=== PATIENT | male | born 1965 | race Caucasian/White ===

== ENCOUNTER 2021-08-04 11:51 | Inpatient (IN) | payer BC ==
[2021-08-04] MEDS ORDERED: SODIUM CHLORIDE 0.9% 500 ML INFUS.BAG IV ONE (13:05)
[2021-08-04 13:26] LABS: BASO % 0.4 % (0-2.0); EOS % 1.5 % (0-4.5); HEMATOCRIT 38.5 % (35.4-49); HEMOGLOBIN 12.6 GM/dL (11.7-16.9); MCH 27.9 pg (25.7-33.7); MCHC 32.7 g/dl (32.0-35.9); MEAN CELL VOLUME 85.4 fl (80-96); MEAN PLT VOLUME 9.6 fl (7.5-11.1); MONO % 7.3 % (3.8-10.2); NEUT % 63.8 % (42.8-82.8); PLATELET COUNT 243 10^3/uL (134-434); RBC 4.51 M/mm3 (4.00-5.60); RDW 13.8 % (11.9-15.9); WHITE BLOOD COUNT 11.1 K/mm3 (4.0-10.0)
[2021-08-04 13:56] LABS: ALBUMIN 3.3 g/dl (3.4-5.0); CALCIUM 9.3 mg/dL (8.5-10.1)
[2021-08-04 13:57] LABS: BLOOD UREA NITROGEN 12.4 mg/dL (7-18)
[2021-08-04 14:00] LABS: TOT PROT 7.4 g/dl (6.4-8.2)
[2021-08-04 14:02] LABS: BILIRUBIN,TOTAL 0.3 mg/dL (0.2-1)
[2021-08-04] MEDS ORDERED: LACTATED RINGERS SOLUTION 1,000 ML/1,000 ML INFUS.BAG IV SCH (15:30)
[2021-08-04] MEDS ORDERED: ACETAMINOPHEN 1000 MG/100 ML VIAL (NON FORMULARY) IVPB PRN (20:15)
[2021-08-04 20:20] VITALS: BMI 27.0
[2021-08-04] MEDS ORDERED: FAMOTIDINE 20 MG/50 ML IVPB 20 MG/50 ML MG IVPB SCH (22:00)
[2021-08-05 05:08] LABS: EPI CELLS 4 /uL (0-25.1); HYALINE CASTS 3 /uL (0-3.1); URINE APPEARANCE CLEAR; URINE BACTERIA 21 /uL (0-1359); URINE BILIRUBIN NEGATIVE (NEGATIVE); URINE COLOR YELLOW; URINE GLUCOSE (UA) NEGATIVE (NEGATIVE); URINE KETONE 1+ (NEGATIVE); URINE LEUK ESTERASE 1+ (NEGATIVE); URINE NITRITE NEGATIVE (NEGATIVE); URINE PROTEIN NEGATIVE (NEGATIVE); URINE RBC 7 /uL (0-23.9); URINE UROBILINOGEN 0.2 mg/dL (0.2-1.0); URINE WBC 16 /uL (0-25.8)
[2021-08-05 08:46] LABS: BASO % 0.5 % (0-2.0); EOS % 1.6 % (0-4.5); HEMOGLOBIN 12.3 GM/dL (11.7-16.9); LYMPH % 29.1 % (8-40); MCH 28.5 pg (25.7-33.7); MCHC 33.3 g/dl (32.0-35.9); MEAN CELL VOLUME 85.7 fl (80-96); MEAN PLT VOLUME 10.3 fl (7.5-11.1); MONO % 5.7 % (3.8-10.2); NEUT % 63.1 % (42.8-82.8); PLATELET COUNT 222 10^3/uL (134-434); RBC 4.31 M/mm3 (4.00-5.60); RDW 13.9 % (11.9-15.9); WHITE BLOOD COUNT 9.6 K/mm3 (4.0-10.0)
[2021-08-05 09:04] LABS: LIPASE 997 U/L (73-393)
[2021-08-05 09:05] LABS: AMYLASE 110 U/L (25-115)
[2021-08-05 09:12] LABS: CHLORIDE 105 mmol/L (98-107); SODIUM 139 mmol/L (136-145)
[2021-08-05 09:14] LABS: CALCIUM 8.7 mg/dL (8.5-10.1)
[2021-08-05 09:15] LABS: ANION GAP 4 MMOL/L (8-16); BLOOD UREA NITROGEN 9.1 mg/dL (7-18); CO2 30 mmol/L (21-32); GLUCOSE,RANDOM 69 mg/dL (74-106); MAGNESIUM 1.9 mg/dL (1.8-2.4)
[2021-08-05 09:17] LABS: ALBUMIN 2.9 g/dl (3.4-5.0)
[2021-08-05 09:18] LABS: SGOT/AST 15 U/L (15-37); SGPT/ALT 18 U/L (13-61)
[2021-08-05 09:19] LABS: BILIRUBIN,TOTAL 0.4 mg/dL (0.2-1)
[2021-08-05 09:20] LABS: ALK PHOS 74 U/L (45-117); CREATININE 0.9 mg/dL (0.55-1.3); TOT PROT 6.5 g/dl (6.4-8.2)
[2021-08-05] MEDS ORDERED: HEPARIN NA (PORCINE) 5,000 UNITS/ML 1ML VIAL SQ SCH (10:00)
[2021-08-05 14:58] VITALS: BP 133/86; PULSE 73; TEMP 98.4
== END 2021-08-05 11:57 | disposition home or self-care (01) | DRG 392 ==
LOC: JER 11:51 → JERBED 12:48 → J6S 19:56
PROVIDERS: ADMIT Family Medicine; ATTEND Family Medicine
DX: A08.39 Other viral enteritis (principal); R11.10 Vomiting, unspecified; R19.7 Diarrhea, unspecified; R74.8 Abnormal levels of other serum enzymes; D72.829 Elevated white blood cell count, unspecified; E78.5 Hyperlipidemia, unspecified; K21.9 Gastro-esophageal reflux disease without esophagitis; Z72.89 Other problems related to lifestyle
CPT/HCPCS: 36415; 71046-TC-FY; 74178-TC; 76705-TC; 80053; 80061; 81003; 82150; 82550; 83605; 83690; 83735; 84484; 85025; 86140; 87040; 87086; 93005; 93010; 99285-25; C9803; Q9967; U0003; U0005